=== PATIENT | male | born 1975 | race Caucasian/White ===

== ENCOUNTER 2018-11-03 08:18 | Emergency (ER) | payer MEDICAID ==
[~2018-11-03] VITALS: Ht 175.3 cm; Wt 79.5 kg
[2018-11-03] MEDS ORDERED: TETanus/Pertussis (Acell)/Diphther VAC/PF (Tdap-Adult) 0.5ml syringe IM ONE (08:35)
[2018-11-03] MEDS ORDERED: AMOX-580 PO (09:15)
--- NOTE | 2018-11-03 09:30 | NUR ---
Patient educated on the importance of going notifying his neighbor that their dogs need to be quarintined for at least 10 days. If dogs begin to show signs of rabies or he needs to report back to the ER for Rabies vaccinations.
[2018-11-03 09:33] VITALS: BP 123/87
== END 2018-11-03 09:34 | disposition home or self-care (01) ==
LOC: ER 08:19
DX: S71.111A Laceration without foreign body, right thigh, initial encounter (principal); S80.811A Abrasion, right lower leg, initial encounter; W54.0XXA Bitten by dog, initial encounter; Y93.89 Activity, other specified; Y92.89 Other specified places as the place of occurrence of the external cause; Y99.8 Other external cause status
CPT/HCPCS: 12002; 90471; 90715; 99283